=== PATIENT | female | born 1955 | race Caucasian/White ===

== ENCOUNTER → 2022-09-01 12:29 | Outpatient (CLI) | payer MEDICARE, SELFPAY ==
[2022-09-01 16:01] LABS: Blood Urea Nitrogen 14 mg/dl (7-17); Estimated Glomerular Filt Rate 83 ml/min (>60); GFR (African American) 101 ML/MIN (>60)
== END ==
PROVIDERS: PCP Family Medicine; Visit Provider Ophthalmology
DX: Z01.812 Encounter for preprocedural laboratory examination (principal)
CPT/HCPCS: 36415; 82565; 84520

== ENCOUNTER → 2022-09-02 09:26 | Outpatient (CLI) | payer MEDICARE, SELFPAY ==
--- NOTE | 2022-09-02 09:31 | MR_ITS ---
FINAL REPORT TECHNIQUE: Multiplanar and multisequence imaging of the brain was obtained before and after contrast administration. CLINICAL HISTORY: SUSPECT RIGHT SIDED STROKE FINDINGS: The gyri and sulci are within normal limits for age. There is no mass effect or midline shift. There are nonspecific periventricular and subcortical white matter changes. No hydrocephalus. The cerebellum and brainstem have a normal appearance. There are no areas of restricted diffusion on diffusion weighted images to suggest acute infarct. There is a hypoplastic right maxillary sinus. Soft tissues are without acute abnormality. No pathologic contrast enhancement is identified. IMPRESSION: No acute intracranial abnormality and no pathologic contrast enhancement. Non-specific periventricular and subcortical white matter changes could be related to chronic small vessel ischemia or demyelinating disease. Reviewed, Interpreted and Dictated by Alexa Son MD Transcribed by Marcelo Fabian Authenticated and [facility]
== END ==
LOC: RAD 09:27
PROVIDERS: PCP Ophthalmology; Visit Provider Ophthalmology
DX: H53.462 Homonymous bilateral field defects, left side (principal)
CPT/HCPCS: 70553; A9576